=== PATIENT | male | born 1955 | race Hispanic/Latino ===

== ENCOUNTER 2018-09-14 07:53 | Outpatient (CLI) | payer BC ==
--- NOTE | 2018-09-14 09:04 | RAD ---
CHEST TWO VIEWS: History: Cough. Comparison: None. FINDINGS: Lungs are clear. No pneumothorax or effusion. Cardiac silhouette and mediastinal contours are within normal limits. IMPRESSION: No acute intrathoracic abnormality. POS: [id number]
== END 2018-09-14 07:54 | disposition home or self-care (01) ==
LOC: BICRAD 07:53
PROVIDERS: ATTEND Family Medicine
DX: R05 Cough (principal)
CPT/HCPCS: 36415; 71046; 80053; 84153; 84443; 85007; 85027; 85060

== ENCOUNTER 2021-10-29 13:54 | Outpatient (CLI) | payer BC, MEDICARE | END 2021-10-29 13:55 | disposition home or self-care (01) | LOC: BICCT 13:54 | PROVIDERS: ATTEND Internal Medicine Cardiovascular Disease | DX: I10 Essential (primary) hypertension (principal); Z90.49 Acquired absence of other specified parts of digestive tract | CPT/HCPCS: 74175; 82565 ==

== ENCOUNTER 2022-01-23 09:56 | Outpatient (CLI) | payer BC, MEDICARE | END 2022-01-23 09:57 | disposition home or self-care (01) | LOC: BICRAD 09:56 | PROVIDERS: ATTEND Family Medicine | DX: M79.671 Pain in right foot (principal) ==

== ENCOUNTER 2023-11-29 09:33 | Emergency (ER) | payer BC, MEDICARE ==
[2023-11-29] MEDS ORDERED: Acetaminophen 325 MG TAB ONE (10:47)
== END 2023-11-29 12:41 | disposition home or self-care (01) ==
LOC: ERS 09:33
DX: S76.012A Strain of muscle, fascia and tendon of left hip, initial encounter (principal); I10 Essential (primary) hypertension; Z79.899 Other long term (current) drug therapy

== ENCOUNTER 2023-12-04 08:00 | Inpatient (IN) | payer BC, MEDICARE ==
[2023-12-04 09:34] LABS: Hematocrit 31.8 % (38.8-50.0); Hemoglobin 10.7 g/dL (13.5-17.5); Mean Corpuscular HGB CONC 33.6 g/dL (32.0-36.0); Mean Corpuscular Hemoglobin 28.9 pg (27.0-33.0); Mean Corpuscular Volume 85.9 fl (81.2-95.1); Mean Platelet Volume 9.4 fl (7.4-10.4); Platelet Count 509 10x3/uL (150-450); RBC Distribution Width 12.4 % (11.5-14.5); White Blood Cell (WBC) Count 9.7 10x3/uL (3.5-10.5)
[2023-12-04 09:52] LABS: Anion Gap 15 mmol/L (10-20); BUN (Urea Nitrogen) 33 mg/dL (8.4-25.7); Calc. Creatinine Clearance 0 mL/min (70-130); Calcium 8.7 mg/dL (7.8-10.44); Carbon Dioxide 25 mmol/L (23-31); Chloride 100 mmol/L (98-107); Estimated GFR 57; Glucose 131 mg/dL (80-115); Potassium 4.3 mmol/L (3.5-5.1); Sodium 136 mmol/L (136-145)
[2023-12-07] MEDS ORDERED: Vancomycin (BATCH) 1.5 GM/300 ML BAG ONE (06:26)
[2023-12-07] MEDS ORDERED: CEFAZOLIN 2 GM VIAL ONE (06:26)
[2023-12-07] MEDS ORDERED: Sodium Chloride 0.9% 100 ML ONE (06:26)
[2023-12-07] MEDS ORDERED: EPINEPHrine 1 MG/ML VIAL ONE (06:32)
[2023-12-07] MEDS ORDERED: Albumin 5% 0 ML ONE (06:32)
[2023-12-07] MEDS ORDERED: Dexamethasone 4 mg/ml Vial ONE (06:32)
[2023-12-07] MEDS ORDERED: Bupivacaine PF 0.5% 30 ML VIAL ONE (06:32)
[2023-12-07] MEDS ORDERED: Lidocaine 1% MPF 2 ML VIAL ONE (06:39)
[2023-12-07] MEDS ORDERED: Heparin 10,000 UNITS/1 ML VIAL 30,000 UNITS in Sodium Chloride 0.9% 1,000 ML FS SCH (06:45)
[2023-12-07] MEDS ORDERED: Fentanyl 250 MCG/5 ML VIAL ONE (06:59)
[2023-12-07] MEDS ORDERED: Midazolam HCl 5 mg/ml Vial ONE (07:00)
[2023-12-07] MEDS ORDERED: PROPOFOL 20 ML ONE (07:02)
[2023-12-07] MEDS ORDERED: ePHEDrine Sulfate 50 MG/10 ML VIAL ONE (07:03)
[2023-12-07] MEDS ORDERED: Magnesium 5 GM/10 ML VIAL ONE (08:32)
[2023-12-07] MEDS ORDERED: Vancomycin 1 GM VIAL ONE ×2 (08:32→09:51)
[2023-12-07] MEDS ORDERED: Ondansetron PF 4 MG/2 ML Vial ONE (08:32)
[2023-12-07] MEDS ORDERED: Mannitol 12.5 GM/50 ML ONE (08:32)
[2023-12-07] MEDS ORDERED: Sodium Bicarb 50 mEq/50 ML VIAL ONE (08:32)
[2023-12-07] MEDS ORDERED: Potassium Chloride 60 mEq (30 mL) VIAL ONE (08:32)
[2023-12-07] MEDS ORDERED: Protamine Sulfate 250 MG/25 ML VIAL ONE (08:32)
[2023-12-07] MEDS ORDERED: Thrombin 5000 UNITS/5 ML VIAL ONE (08:32)
[2023-12-07] MEDS ORDERED: Heparin 30,000 units/30 ml VIAL ONE (08:32)
[2023-12-07] MEDS ORDERED: Lidocaine 2% PF 100 mg/5 ml Syringe ONE (08:32)
[2023-12-07] MEDS ORDERED: Aminocaproic Acid 5 GM/20 ML VIAL ONE ×2 (08:32→10:09)
[2023-12-07] MEDS ORDERED: PHENYLEPHRINE-NS 100 MCG/ML 10 ML SYRINGE ONE (08:32)
[2023-12-07] MEDS ORDERED: Calcium Chloride 1 GM/10 ML Abboject SYRINGE ONE (08:32)
[2023-12-07] MEDS ORDERED: Lidocaine 1% PF 5 ML VIAL ONE (10:09)
[2023-12-07] MEDS ORDERED: Etomidate 40 MG (20 mL) VIAL ONE (10:09)
[2023-12-07] MEDS ORDERED: Rocuronium Bromide 10 MG/ML (10ML VIAL) ONE (10:09)
[2023-12-07] MEDS ORDERED: traMADol HCl 50 MG TAB PO PRN (10:39)
[2023-12-07] MEDS ORDERED: NOREPINEPHRINE 8 MG/250 ML-D5W 250 ML IVPB PRN (10:39)
[2023-12-07] MEDS ORDERED: Guaifenesin DM 100-10/5 ML UDCUP PO PRN (10:39)
[2023-12-07] MEDS ORDERED: Bisacodyl 10 MG SUPP PR PRN (10:39)
[2023-12-07] MEDS ORDERED: fentaNYL 50 mcg/mL 1 mL Vial SLOW IVP PRN ×2 (10:39)
[2023-12-07] MEDS ORDERED: Mag-Al 1200 mg/1200 mg/30 ML UDCUP PO PRN (10:39)
[2023-12-07] MEDS ORDERED: Ipratropium/Albuterol 3 ML NEB NEB PRN (10:39)
[2023-12-07] MEDS ORDERED: Hetastarch 6% 500 ML 500 ML IVPB PRN (10:39)
[2023-12-07] MEDS ORDERED: Albumin 5% 12.5 GM (250 mL) BOT IVPB PRN ×2 (10:39)
[2023-12-07] MEDS ORDERED: Potassium Chloride 20 MEQ (100 mL) BAG IVPB PRN (10:39)
[2023-12-07] MEDS ORDERED: Bisacodyl 5 MG TAB PO PRN (10:39)
[2023-12-07] MEDS ORDERED: fentaNYL PF 100 MCG/2 ML SYRINGE ONE (10:41)
[2023-12-07 10:44] LABS: Actual Bicarbonate (HCO3a) 18.8 mEq/L (22-28); Base Excess (BEa) -5.3 mEq/L (-2.0 to +3.0); Calcium, Ionized (arterial) 1.27 mmol/L (1.12-1.30); Carboxyhemoglobin (COHb) 0.5 gm% (0.0-3.0); Hematocrit-ABG 35 % (42.0-52.0); Hemoglobin (Hb) 11.9 g/dL (14.0-18.0); O2 Tension (PaO2), arterial 206.7 mmHg (> 70.0); Potassium - ABG Lab 4.89 mmol/L (3.70-5.30); pH, Arterial 7.386 (7.35-7.45)
[2023-12-07 10:45] LABS: Puncture Site Arterial Line
[2023-12-07] MEDS ORDERED: Glucagon 1 MG/ML KIT SC PRN (10:45)
[2023-12-07] MEDS ORDERED: Dextrose 5% in Water 1,000 ML IV PRN (10:45)
[2023-12-07] MEDS ORDERED: Insulin Regular 300 UNITS/3 ML VIAL SC PRN (10:45)
[2023-12-07] MEDS ORDERED: Dextrose 50% Abboject 50 ML SYRINGE SLOW IVP PRN (10:45)
[2023-12-07] MEDS: D5 1/2 NS w/20 mEq KCL 1,000 ML IV SCH (10:53)
[2023-12-07] MEDS: HUMULIN R 100 UNITS in Sodium Chloride 0.9% 100 ML IVPB SCH (10:53)
[2023-12-07] MEDS: Magnesium 2 GM/50 ML(in water) 2 GM in Premix 1 BAG IVPB SCH (10:54)
[2023-12-07 11:06] LABS: #Basophils 0.1 thou/uL (0.0-0.2); #Eosinphils 0.2 thou/uL (0.0-0.7); #Monocytes 1.5 thou/uL (0.11-0.59); #Neutrophils 16.5 thou/uL (1.40-6.50); %Basophils 0.2 % (0.0-1.0); %Eosinophils 1.2 % (0.0-10.0); %Lymphocytes 9.9 % (21.0-51.0); %Neutrophils 80.1 % (42.0-75.0); Hematocrit 32.5 % (42.0-52.0); Hemoglobin 10.9 g/dL (14.0-18.0); Mean Corpuscular HGB CONC 33.5 g/dL (32.0-36.0); Mean Corpuscular Hemoglobin 28.8 pg (27.0-31.0); Mean Platelet Volume 9.3 fL (7.4-10.4); Platelet Count 376 10x3/uL (130-400); RBC Distribution Width 12.5 % (11.5-14.5); Red Blood Cell (RBC) Count 3.78 mill/uL (4.70-6.10); White Blood Cell (WBC) Count 20.7 10x3/uL (4.8-10.8)
[2023-12-07] MEDS: Morphine 2 MG/ML VIAL SLOW IVP PRN (11:15)
[2023-12-07] MEDS: Nitroglycerin 50 MG/250 ML BOT 250 ML IVPB PRN (11:18)
[2023-12-07 11:22] LABS: Anion Gap 14 mmol/L (10-20); BUN (Urea Nitrogen) 29 mg/dL (8.4-25.7); Calc. Creatinine Clearance 72 mL/min (70-130); Calcium 8.6 mg/dL (7.8-10.44); Carbon Dioxide 20 mmol/L (23-31); Chloride 106 mmol/L (98-107); Estimated GFR 72; Glucose 176 mg/dL (80-115); INR-International Normal Ratio 1.4; PTT 36.5 sec (22.9-36.1); Potassium 5.1 mmol/L (3.5-5.1); Sodium 135 mmol/L (136-145)
[2023-12-07] MEDS: Sodium Chloride 0.45% 1,000 ML IV SCH (11:30)
[2023-12-07] MEDS: Ketorolac Tromethamine 30 MG (1 mL) VIAL IVP SCH (11:51)
[2023-12-07] MEDS: hydrALAZINE 20 MG/ML VIAL SLOW IVP PRN (11:52)
[2023-12-07] MEDS: CEFAZOLIN 2 GM in Sodium Chloride 0.9% 100 ML IVPB SCH (13:39)
[2023-12-07 16:36] LABS: Hematocrit 32.8 % (42.0-52.0); Hemoglobin 10.9 g/dL (14.0-18.0)
[2023-12-07 16:46] LABS: Potassium 4.6 mmol/L (3.5-5.1)
[2023-12-07] MEDS: SODIUM CHLORIDE 0.9% IVPB SCH (17:55)
[2023-12-07] MEDS: VANCOMYCIN IVPB SCH (17:55)
[2023-12-07] MEDS: Ondansetron PF 4 MG/2 ML Vial IVP PRN (18:43)
[2023-12-07] MEDS: Famotidine/PF 20 mg/2ml Vial SLOW IVP SCH (21:14)
[2023-12-08 01:14] LABS: Actual Bicarbonate (HCO3a) 19.2 mEq/L (22-28); Base Excess (BEa) -5.1 mEq/L (-2.0 to +3.0); CO2 Tension 33.3 mmHg (35.0-45.0); Calcium, Ionized (arterial) 1.23 mmol/L (1.12-1.30); Carboxyhemoglobin (COHb) 0.5 gm% (0.0-3.0); Hematocrit-ABG 35 % (42.0-52.0); Hemoglobin (Hb) 11.9 g/dL (14.0-18.0); O2 Tension (PaO2), arterial 152.9 mmHg (> 70.0); Potassium - ABG Lab 4.73 mmol/L (3.70-5.30); pH, Arterial 7.378 (7.35-7.45)
[2023-12-08 01:15] LABS: ALV-art Gradient 19.375 mmHg (0-20); Puncture Site LINE
[2023-12-08 07:27] VITALS: BMI 30.1
[2023-12-08 07:28] LABS: #Monocytes 1.9 thou/uL (0.11-0.59); #Neutrophils 14.4 thou/uL (1.40-6.50); %Basophils 0.1 % (0.0-1.0); %Lymphocytes 8.7 % (21.0-51.0); %Monocytes 10.6 % (0.0-10.0); %Neutrophils 80.1 % (42.0-75.0); Hematocrit 31.7 % (42.0-52.0); Hemoglobin 10.8 g/dL (14.0-18.0); Mean Corpuscular HGB CONC 34.1 g/dL (32.0-36.0); Mean Corpuscular Hemoglobin 28.8 pg (27.0-31.0); Mean Corpuscular Volume 84.5 fl (78.0-98.0); Mean Platelet Volume 9.4 fL (7.4-10.4); Platelet Count 429 10x3/uL (130-400); RBC Distribution Width 12.7 % (11.5-14.5); Red Blood Cell (RBC) Count 3.75 mill/uL (4.70-6.10)
[2023-12-08 07:44] LABS: Anion Gap 15 mmol/L (10-20); BUN (Urea Nitrogen) 36 mg/dL (8.4-25.7); Calc. Creatinine Clearance 52 mL/min (70-130); Calcium 8.7 mg/dL (7.8-10.44); Carbon Dioxide 19 mmol/L (23-31); Chloride 109 mmol/L (98-107); Estimated GFR 51; Glucose 118 mg/dL (80-115); Potassium 4.7 mmol/L (3.5-5.1); Sodium 138 mmol/L (136-145)
[2023-12-08] MEDS: Magnesium 2 GM/50 ML(in water) 2 GM in Premix 1 BAG IVPB SCH (08:20)
[2023-12-08] MEDS: Spironolactone 25 MG TAB PO SCH (08:21)
[2023-12-08] MEDS: Amlodipine 5 MG TAB PO SCH (08:21)
[2023-12-08] MEDS: Atorvastatin Calcium 10 MG TAB PO SCH (08:21)
[2023-12-08] MEDS: Aspirin 325 MG TAB PO SCH (08:21)
[2023-12-08] MEDS: Carvedilol 6.25 MG TAB PO SCH (08:21)
[2023-12-08] MEDS ORDERED: Insulin Glargine 30 UNITS/0.3 ML VIAL SC PRN (10:42)
[2023-12-08] MEDS: traMADol HCl 50 MG TAB PO PRN (10:53)
[2023-12-08] MEDS ORDERED: Bisacodyl 10 MG SUPP PR PRN (18:24)
[2023-12-08] MEDS ORDERED: Mag-Al 1200 mg/1200 mg/30 ML UDCUP PO PRN (18:24)
[2023-12-08] MEDS ORDERED: diphenhydrAMINE 25 MG CAP PO PRN (18:24)
[2023-12-08] MEDS ORDERED: Guaifenesin DM 100-10/5 ML UDCUP PO PRN (18:24)
[2023-12-08] MEDS ORDERED: Bisacodyl 5 MG TAB PO PRN (18:24)
[2023-12-08] MEDS ORDERED: Mineral Oil ENEMA PR PRN (18:24)
[2023-12-08] MEDS ORDERED: Artificial Tear Sol 15 ML BOT EA EYE PRN (18:24)
[2023-12-08] MEDS ORDERED: Nitroglycerin 0.4 MG TAB (25 Tab Bottle) SL PRN (18:24)
[2023-12-08] MEDS: Acetaminophen 325 MG TAB PO PRN (21:32)
[2023-12-09] MEDS: traMADol HCl 50 MG TAB PO PRN ×2 (09:42→22:22)
[2023-12-09] MEDS: Aspirin 325 mg Enteric Coated Tablet PO SCH (09:44)
[2023-12-09] MEDS: Losartan 25 MG TAB PO SCH (16:05)
[2023-12-10] MEDS: Losartan 25 MG TAB PO SCH (09:06)
[2023-12-10] MEDS: Digoxin 0.5 MG/2 ML AMP SLOW IVP SCH (10:05)
[2023-12-11] MEDS: Digoxin 0.125 MG TAB PO SCH (08:35)
[2023-12-11 12:05] VITALS: BP 127/63; TEMP 97.7
== END 2023-12-11 13:08 | disposition home or self-care (01) | DRG 220 ==
LOC: SURG A 12-07 06:07 → CCU 12-07 10:22 → 2NO 12-08 18:43
PROVIDERS: ADMIT Thoracic Surgery (Cardiothoracic Vascular Surgery); ATTEND Thoracic Surgery (Cardiothoracic Vascular Surgery)
PROC: 0BH17EZ Insertion of Endotracheal Airway into Trachea, Via Natural or Artificial Opening (ICD-10-PCS; principal; 2023-12-07)
PROC: 02RF0JZ Replacement of Aortic Valve with Synthetic Substitute, Open Approach (ICD-10-PCS; 2023-12-07)
PROC: 02L70CK Occlusion of Left Atrial Appendage with Extraluminal Device, Open Approach (ICD-10-PCS; 2023-12-07)
PROC: 30233N1 Transfusion of Nonautologous Red Blood Cells into Peripheral Vein, Percutaneous Approach (ICD-10-PCS; 2023-12-07)
PROC: 4A033R1 Measurement of Arterial Saturation, Peripheral, Percutaneous Approach (ICD-10-PCS; 2023-12-07)
PROC: 30233J1 Transfusion of Nonautologous Serum Albumin into Peripheral Vein, Percutaneous Approach (ICD-10-PCS; 2023-12-07)
PROC: 3E033XZ Introduction of Vasopressor into Peripheral Vein, Percutaneous Approach (ICD-10-PCS; 2023-12-07)
DX: I35.1 Nonrheumatic aortic (valve) insufficiency (principal); D62 Acute posthemorrhagic anemia; I10 Essential (primary) hypertension; E78.5 Hyperlipidemia, unspecified; R60.0 Localized edema
CPT/HCPCS: 36415; 36416; 36430; 71045; 80048; 82805; 85025; 85027; 85610; 85730; 86850; 86900; 86901; 93005; 93010; 93798; 94002; A4311; C1713; C1751; C1776; C1889; J0171; J0360; J0665; J1100; J1160; J1642; J1644; J1815; J1885; J2001; J2150; J2250; J2272; J2405; J2704; J2720; J3010; J3370; J3475; J3480; J3490; J7050; P9016; P9045; S0017; S0028

== ENCOUNTER 2023-12-04 08:00 | Outpatient (CLI) | payer BC, MEDICARE | END 2023-12-04 08:01 | disposition home or self-care (01) | LOC: LABBT 08:00 | PROVIDERS: ATTEND Thoracic Surgery (Cardiothoracic Vascular Surgery) | DX: Z01.818 Encounter for other preprocedural examination (principal); I35.1 Nonrheumatic aortic (valve) insufficiency | CPT/HCPCS: 71046; 93005; 93010 ==